=== PATIENT | male | born 1960 | race Caucasian/White ===

== ENCOUNTER 2020-05-15 15:32 | Emergency (ER) | payer OTHER ==
[~2020-05-15] VITALS: Ht 177.8 cm; Wt 81.8 kg
[2020-05-15 16:05] VITALS: BP 141/96
== END 2020-05-15 16:20 | disposition home or self-care (01) ==
LOC: ER 15:33
DX: Z00.01 Encounter for general adult medical examination with abnormal findings (principal); Z20.828 Contact with and (suspected) exposure to other viral communicable diseases
CPT/HCPCS: 36415; 99282